=== PATIENT | male | born 1955 | race Two or more races ===

== ENCOUNTER 2021-12-19 13:56 | Outpatient (CLI) | payer OTHER | END 2021-12-19 14:01 | disposition home or self-care (01) | LOC: PPH VACUNA 13:56 | PROVIDERS: ATTEND Emergency Medicine Pediatric Emergency Medicine | DX: Z23 Encounter for immunization (principal) ==

== ENCOUNTER 2024-01-20 07:16 | Emergency (ER) | payer OTHER ==
[~2024-01-20] VITALS: Ht 172.7 cm; Wt 90.7 kg
[2024-01-20] MEDS ORDERED: LOSARTAN-HCTZ1 EAC1 PO (07:45)
[2024-01-20] MEDS ORDERED: XARELTO20 MG (07:46)
== END 2024-01-20 08:31 | disposition home or self-care (01) ==
LOC: ER 07:18
DX: S01.82XA Laceration with foreign body of other part of head, initial encounter (principal); Y93.89 Activity, other specified; Y92.013 Bedroom of single-family (private) house as the place of occurrence of the external cause; W22.8XXA Striking against or struck by other objects, initial encounter